=== PATIENT | female | born 1935 | race Two or more races ===

== ENCOUNTER 2022-12-16 02:32 | Emergency (ER) | payer OTHER ==
[~2022-12-16] VITALS: Ht 147.3 cm; Wt 66.2 kg
[~2022-12-16 02:32] MED LIST: ALDACTONE50 MG; ATORVASTATIN CA40 MG PO; CEFADROXIL500 MG PO; COLACE100 MG PO; COZAAR100 MG; COZAAR50 MG PO; DAILY VALUE1 EACH PO; FLOVENT DI50 MCG/DIS NASAL; INTESTINEX680 MG PO; NORVASC5 MG PO; SINGULAIR10 MG PO; SYMBICORT 16010.2 GM NASAL; TYLENOL 325MG325 MG PO; ZANTAC150 MG PO
[2022-12-16] MEDS ORDERED: ALENDRONATE SOD70 MG PO (02:46)
[2022-12-16] MEDS ORDERED: DRAMAMINE LESS25 MG PO (02:46)
[2022-12-16] MEDS ORDERED: PAXLOVID 300-11 EACH PO (04:11)
[2022-12-16] MEDS ORDERED: TUSNEL LIQUID178 ML PO (04:11)
== END 2022-12-16 05:02 | disposition home or self-care (01) ==
LOC: ER 02:33
DX: U07.1 COVID-19 (principal); Z91.013 Allergy to seafood
CPT/HCPCS: 96372; 99284; J1100

== ENCOUNTER 2022-12-17 20:31 | Emergency (ER) | payer OTHER ==
[~2022-12-17] VITALS: Ht 157.5 cm; Wt 65.8 kg
[~2022-12-17 20:31] MED LIST changes: +ALENDRONATE SOD70 MG PO; +DRAMAMINE LESS25 MG PO; +PAXLOVID 300-11 EACH PO; +TUSNEL LIQUID178 ML PO
[2022-12-17 21:20] LABS: HEMATOCRIT 35.2 % (36.0-45.00); HEMOGLOBIN 12.3 g/dL (12.0-15.00); MEAN CELL VOLUME 89.9 fL (80.00-100.00); MEAN CORPUSCULAR HEMOGLOBIN 31.4 pg (27.00-32.0); PLATELET COUNT 288 K/uL (150-450); RED BLOOD COUNT 3.92 M/uL (4.00-6.00); RED CELL DISTRIBUTION WIDTH 13.5 % (11.5-14.5)
== END 2022-12-18 00:40 | disposition home or self-care (01) ==
LOC: ER 20:31
PROVIDERS: General Practice
DX: U07.1 COVID-19 (principal); Z91.013 Allergy to seafood; I10 Essential (primary) hypertension; J84.10 Pulmonary fibrosis, unspecified
CPT/HCPCS: 36415; 71250; 96372; 99284; J1885